=== PATIENT | female | born 1985 | race Caucasian/White ===

== ENCOUNTER 2017-01-30 07:39 | Emergency (ER) | payer BC ==
[2017-01-30 07:52] VITALS: BP 117/82
--- NOTE | 2017-01-30 07:52 | ED ---
Throat Pain/Nasal Congestion - HPI Summary HPI Summary: Phu sinus pressure and upper teach pain. no fever. Pseudaphed has been helping PRN. - History of Current Complaint Time Seen by Provider: 01/30/17 07:49 Hx Obtained From: Patient Onset/Duration: Gradual Onset Severity: Moderate Associated Signs And Symptoms: Positive: Negative Cough: Nonproductive - Epiglottits Risk Factors Epiglottis Risk Factors: Negative - Allergies/Home Medications Allergies/Adverse Reactions: Allergies Allergy/AdvReac Type Severity Reaction Status Date / Time No Known Allergies Allergy Verified 03/22/16 18:54 PMH/Surg Hx/FS Hx/Imm Hx Endocrine/Hematology History: Reports: Hx Diabetes - pre, Hx Thyroid Disease - Surgical History [facility] - Family History Known Family History: Positive: None - No related ENT history. - Social History Alcohol Use: None Substance Use Type: Reports: None Smoking Status (MU): Never Smoked Tobacco Review of Systems Negative: Fatigue, Skin Diaphoresis Eyes: Negative Positive: Dental Pain Negative: Rash Neurological: Negative Psychological: Normal All Other Systems Reviewed And Are Negative: Yes Physical Exam Triage Information Reviewed: Yes Vital Signs Reviewed: Yes Appearance: Positive: Well-Appearing, No Pain Distress, Well-Nourished Skin: Positive: Warm, Skin Color Reflects Adequate Perfusion, Dry Head/Face: Positive: Normal Head/Face Inspection Eyes: Positive: Normal, EOMI, AMIRAH, Conjunctiva Clear. Negative: Conjunctiva Inflammed, Discharge ENT: Positive: Normal ENT inspection, Hearing grossly normal, Pharyngeal erythema, Nasal congestion, TMs normal. Negative: Nasal drainage, TM bulging, TM dull, TM red, Tonsillar swelling, Tonsillar exudate, Trismus, Muffled/hoarse voice, Dental tenderness Dental: Negative: Abscess @, Cellulitis @ Neck: Positive: Supple, Nontender, No Lymphadenopathy. Negative: Nuchal Rigidity, Enlarged Nodes @ Respiratory/Lung Sounds: Positive: Clear to Auscultation, Breath Sounds Present. Negative: Decreased Breath Sounds Cardiovascular: Positive: Normal Abdomen Description: Positive: Nontender, No Organomegaly Musculoskeletal: Positive: Normal Neurological: Positive: Normal Psychiatric: Positive: Normal EENT Course/Dx - Course Course Of Treatment: URI with early sinusitis. She will keep trying decongestants, netti pots, supportive care. Amox faxed in for use in the next few days if not improving. - Differential Diagnoses Differential Diagnoses: Periodontic Abscess, Peritonsillar Ulcer, Pharyngitis - Diagnoses Provider Diagnoses: URI (upper respiratory infection), Sinusitis Discharge - Discharge Plan Condition: Stable Disposition: HOME Prescriptions: Amoxicillin CAP* 500 mg PO TID #30 cap Patient Education Materials: Sinusitis (ED) Referrals: HECTOR Velazquez [Primary Care Provider] -
== END 2017-01-30 08:20 | disposition home or self-care (01) ==
LOC: UCCORT 07:39
DX: J06.9 Acute upper respiratory infection, unspecified (principal); J32.9 Chronic sinusitis, unspecified
CPT/HCPCS: 99212; G0463

== ENCOUNTER 2017-02-15 08:07 | Emergency (ER) | payer BC ==
[2017-02-15 08:18] VITALS: BP 108/72
--- NOTE | 2017-02-15 08:30 | UC ---
Eye Complaint HPI - HPI Summary HPI Summary: 31 yo female with a PMH of pre-diabetic, and hypothyroidism presents with left eye redness, green discharge, intense itching and crusted shut this morning upon waking. Reports her niece has the same thing and she was exposed to her. Denies fever or chills. - History of Current Complaint Chief Complaint: UCEye Stated Complaint: EYE COMPLAINT Time Seen by Provider: 02/15/17 08:29 Hx Obtained From: Patient Hx Last Menstrual Period: 01/09/17 ?: No Onset/Duration: Sudden Onset Timing: Hours - started upon waking today Severity Initially: Moderate Severity Currently: Moderate Pain Intensity: 4 Pain Scale Used: 0-10 Numeric Location of Injury: Conjunctiva Aggravating Factor(s): Blinking Alleviating Factor(s): Nothing Associated Signs And Symptoms: Positive: Drainage (Purulent). Negative: Vision Impairment Right, Vision Impairment Left, Fever - Risk Factors Penetrating Injury Risk Factor: Negative Globe Rupture Risk Factors: Negative Acute Glaucoma Risk Factors: Negative Optic Artery Occlusion Risk Factors: Negative - Allergies/Home Medications Allergies/Adverse Reactions: Allergies Allergy/AdvReac Type Severity Reaction Status Date / Time ENVIRONMENTAL Allergy Shortness Uncoded 02/15/17 08:19 of Breath Home Medications: Home Medications Gummi Vitamin 2 tab PO DAILY 02/15/17 [History Confirmed 02/15/17] PMH/Surg Hx/FS Hx/Imm Hx Previously Healthy: Yes Endocrine History Of: Reports: Diabetes - pre, Thyroid Disease - CENTRAL HYPO - Surgical History Surgical History: Yes Surgery Procedure, Year, and Place: [facility], last was 12/27/15 - Family History Known Family History: Positive: None - No related ENT history. - Social History Occupation: Employed Full-time Lives: With Family Alcohol Use: None Substance Use Type: None Smoking Status (MU): Never Smoked Tobacco Have You Smoked in the Last Year: No - Immunization History Hx Tetanus, Diphtheria Vaccination: Yes Vaccination Up to Date: Yes Review of Systems Constitutional: Negative Skin: Negative Eyes: Drainage, Eye Redness, Other - itching ENT: Negative Respiratory: Negative Cardiovascular: Negative Gastrointestinal: Negative Genitourinary: Negative Motor: Negative Neurovascular: Negative Musculoskeletal: Negative Neurological: Negative Psychological: Negative All Other Systems Reviewed And Are Negative: Yes Physical Exam Triage Information Reviewed: Yes Appearance: Well-Appearing, No Pain Distress, Well-Nourished Vital Signs: Initial Vital Signs Temp 98.6 F 02/15/17 08:11 Pulse 74 02/15/17 08:11 Resp 18 02/15/17 08:11 BP 108/72 02/15/17 08:11 Vital Signs Reviewed: Yes Eyes: Positive: Other: - left eye diffuse injection, noted green and watery discharge ENT: Positive: Normal ENT inspection, Pharynx normal, TMs normal Neck: Positive: Supple, Nontender, No Lymphadenopathy Respiratory: Positive: Chest non-tender, Lungs clear, Normal breath sounds, No respiratory distress Cardiovascular: Positive: RRR, No Murmur, Pulses Normal, Brisk Capillary Refill Abdominal Exam: Normal Abdomen Description: Positive: Nontender, No Organomegaly, Soft Musculoskeletal: Positive: Strength Intact, ROM Intact, No Edema Neurological: Positive: Alert Psychological Exam: Normal Eye Complaint Course/Dx - Differential Dx/Diagnosis Differential Diagnosis/HQI/PQRI: Conjunctivitis - viral Provider Diagnoses: 1. Bacterial Conjunctivitis Discharge - Discharge Plan Condition: Stable Disposition: HOME Prescriptions: Polymyx/Trimethoprim OPTH* [Polytrim OPHTH*] 1 drop LEFT EYE Q3H #1 btl Patient Education Materials: Conjunctivitis (ED) Referrals: HECTOR Velazquez [Primary Care Provider] - (please follow up if no improvement in 24 hours)
== END 2017-02-15 08:53 | disposition home or self-care (01) ==
LOC: UCCORT 08:07
DX: H10.30 Unspecified acute conjunctivitis, unspecified eye (principal)
CPT/HCPCS: 99212; G0463

== ENCOUNTER 2018-02-20 12:29 | Emergency (ER) | payer BC ==
[2018-02-20 13:20] VITALS: BP 126/98
--- NOTE | 2018-02-20 13:20 | UC ---
Throat Pain/Nasal Rodney HPI - HPI Summary HPI Summary: Pt presents with dry cough and sore throat. She tells me that for the last week she has had some sinus congestion and post nasal drip, but over the last 2 days developed a sore throat and cough. She is concerned that she has strep and would like to be checked. Has not been taking anything OTC. Denies fever, chills , SOB, chest pain. - History of Current Complaint Stated Complaint: COLD SYMPTOMS,SORE THROAT Time Seen by Provider: 02/20/18 13:19 Hx Obtained From: Patient Hx Last Menstrual Period: 01/09/17 Onset/Duration: Gradual Onset Severity: Mild Pain Intensity: 3 Pain Scale Used: 0-10 Numeric Cough: Nonproductive - Allergies/Home Medications Allergies/Adverse Reactions: Allergies Allergy/AdvReac Type Severity Reaction Status Date / Time ENVIRONMENTAL Allergy Shortness Uncoded 02/15/17 08:19 of Breath PMH/Surg Hx/FS Hx/Imm Hx Previously Healthy: Yes Endocrine History: Hypothyroidism - Surgical History Surgical History: Yes [facility] - Family History Known Family History: Positive: None - No related ENT history. - Social History Occupation: Employed Full-time Lives: With Family Alcohol Use: None Substance Use Type: None Smoking Status (MU): Never Smoked Tobacco Have You Smoked in the Last Year: No - Immunization History Hx Tetanus, Diphtheria Vaccination: Yes Vaccination Up to Date: Yes Review of Systems Constitutional: Negative Skin: Negative Eyes: Negative ENT: Sore Throat, Sinus Congestion Respiratory: Cough Cardiovascular: Negative Gastrointestinal: Negative Neurological: Negative Psychological: Negative All Other Systems Reviewed And Are Negative: Yes Physical Exam - Summary Physical Exam Summary: GENERAL: NAD. WDWN. No pain distress. SKIN: No rashes, sores, ulcers, masses, lesions. HEENT: Head: AT/NC Eyes: Conjunctiva clear without inflammation or discharge. Ears: Hearing grossly normal. TMs intact, no bulging, erythema, or edema. Nose: Nasal mucosa pink and moist. NTTP maxillary and frontal sinus. Throat: Posterior oropharynx mild erythema and 2+ tonsillar enlargement. No exudates. Uvula midline. No hoarse voice or muffled voice. NECK: Supple. Nontender. No lymphadenopathy. CHEST: CTAB. No r/r/w. No accessory muscle use. Breathing comfortably and in no distress. CV: RRR. Without m/r/g. Pulses intact. Brisk cap refill. NEURO: Alert. CN II-XII grossly intact. PSYCH: Age appropriate behavior. Triage Information Reviewed: Yes Throat Pain/Nasal Course/Dx - Course Course Of Treatment: POC strep negative. Tonsillitis. Advised conservative treatment with rest, fluids, and ibuprofen prn. - Differential Dx/Diagnosis Provider Diagnoses: Tonsillitis Discharge - Sign-Out/Discharge Documenting (check all that apply): Discharge - Discharge Plan Condition: Stable Disposition: HOME Patient Education Materials: Tonsillitis (ED) Referrals: HECTOR Velazquez [Primary Care Provider] - Additional Instructions: If you develop a fever, shortness of breath, chest pain, new or worsening symptoms - please call your PCP or go to the ED. - Billing Disposition and Condition Condition: STABLE Disposition: HOME
== END 2018-02-20 13:39 | disposition home or self-care (01) ==
LOC: UCCORT 12:29
DX: J03.90 Acute tonsillitis, unspecified (principal)
CPT/HCPCS: 87651; 99211; G0463